=== PATIENT | female | born 2000 | race African-American/Black ===

== ENCOUNTER 2020-09-07 08:48 | Emergency (ER) | payer OTHER, SELFPAY ==
[2020-09-07 08:57] VITALS: BP 130/78; PULSE 75; RESP 16; TEMP 37.3; O2SAT 99
--- NOTE | 2020-09-07 09:17 | ED.GENADULT ---
HPI - General Adult General Chief complaint: Upper Respiratory Infection Stated complaint: possible sinus infection Time Seen by Provider: 09/07/20 09:17 Source: patient and RN notes reviewed Mode of arrival: ambulatory Limitations: no limitations History of Present Illness HPI narrative: 20-year-old female presents with complaints of upper respiratory infection, facial congestion, facial pain, and intermittent headaches (not the worst of her life) for the past 4 days. Symptoms increased over the past 24 hours with increase yellow rhinorrhea and nausea without vomiting and abdominal pain. Tolerating po intake well. No facial swelling. Denies cough. Nasal congestion and rhinorrhea. No chest pain or shortness of breath. Exacerbating factors consist of smoke. Denies fever or chills. LMP unknown due to Implanon placement. Remains active. The patient reports she have not been diagnosed with COVID-19. The patient reports she is not waiting for the results of a COVID-19 lab test. The patient reports she do not have fever, weakness, or fatigue. The patient reports she do not have a new or worsening cough. The patient reports she do not have any sore throat, loss of taste, and diarrhea. Tolerating po intake well. Denies recent traveling. Denies concerns for COVID-19 or exposures been home with limited outdoor exposure except for essential household needs, work, and return home. At this time, patient is not suspected of having COVID-19. Some parts of this dictation were generated by voice recognition software and may contain typographical and/or grammatical inaccuracies. Related Data Home Medications Medication Instructions Recorded Confirmed Implanon 1 implant IM MONTHLY 09/07/20 09/07/20 Allergies Allergy/AdvReac Type Severity Reaction Status Date / Time levofloxacin Allergy Severe Anaphylaxis Verified 09/07/20 09:01 Review of Systems Review of Systems: Narrative: CONSTITUTIONAL: Denies fever, chills, sweats. EYES: Denies visual changes, redness, discharge. ENT: Complains of rhinorrhea, congestion, sore throat. Denies otalgia. CARDIOVASCULAR: Denies chest pain, palpitations, edema. RESPIRATORY: Denies dyspnea, wheezing. Complains of dry cough/intermittent productive. GASTROINTESTINAL: Denies abdominal pain, nausea, vomiting, diarrhea. GENITOURINARY: Denies dysuria, hematuria, abnormal discharge. SKIN: Denies rash or itching. MUSCULOSKELETAL: Denies acute back pain, joint pain, or myalgia. NEUROLOGIC: Denies numbness or focal weakness. Complains of intermittent EL. PSYCHIATRIC: Denies anxiety or depression. All systems reviewed & are unremarkable except as noted in HPI and below. [facility] Past Medical History Medical History (Updated 09/09/20 @ 00:22 by ANGELICA Dubois) No significant past medical history Surgical History Surgical History (Updated 09/09/20 @ 00:22 by ANGELICA Dubois) No significant past surgical history Family History Family History (Updated 09/09/20 @ 00:23 by ANGELICA Dubois) Father Alive and well Mother Asthma Social History Social History (Updated 09/09/20 @ 00:25 by ANGELICA Dubois) Smoking status: Never smoker Tobacco type: cigarettes Second hand tobacco smoke exposure: No Alcohol intake: never Substance use: current Living arrangements: with family Occupation/Education: occupation Gender identity (if verbalized by the patient): Female Sexual Orientation (if Verbalized by the Patient): Straight or Heterosexual Comments At time of signature, agree with nurse past medical, surgical, social, and family history. There is no relevant family history pertinent to the presenting complaint. Exam Narrative: Exam Narrative: GENERAL: This is a well-nourished, well-developed patient, in no apparent distress. Talks in full sentences and ambulates with steady gait without dyspnea. HEAD: normocephalic, atraumatic. EYES: PERRL. Sclera clear/w
--- NOTE | 2020-09-07 13:21 | PC.NURSE ---
1259- Covid registration tried to contact pt. Pt gave Express care registration bad telephone number ([phone]).Contacted the [facility] pt frequents and asked if they had an updated phone number, they gave me [phone], gave to Covid registration and Express Care registration.
== END 2020-09-07 09:34 | disposition home or self-care (01) ==
PROVIDERS: Emergency Provider Nurse Practitioner Family
DX: B34.9 Viral infection, unspecified (principal); Z20.828 Contact with and (suspected) exposure to other viral communicable diseases
CPT/HCPCS: 99213; G0463

== ENCOUNTER 2020-11-14 06:15 | Emergency (ER) | payer OTHER, SELFPAY ==
[2020-11-14 06:22] VITALS: BP 113/57; PULSE 83; RESP 20; TEMP 36.2; O2SAT 100
[2020-11-14 06:25] VITALS: BP 113/57; PULSE 74; PULSE 78; RESP 15; O2SAT 100
--- NOTE | 2020-11-14 06:46 | ED.GENADULT ---
HPI - General Adult General Chief complaint: Unspecified Stated complaint: Decreased taste, left ear pain Time Seen by Provider: 11/14/20 06:46 Source: RN notes reviewed History of Present Illness HPI narrative: Patient presents emergency department from work for viral symptoms. Patient states that this morning she cannot taste her toothpaste or any salt water she also states she lost her sense of smell she notes mild rhinorrhea as well as left ear pain that all started this morning she denies any fevers or chills chest pain shortness of breath cough abdominal pain or any other symptoms she went to work today and was recommended come to the ED for rule out for Covid Related Data Home Medications Medication Instructions Recorded Confirmed Implanon 1 implant IM MONTHLY 09/07/20 09/07/20 Allergies Allergy/AdvReac Type Severity Reaction Status Date / Time levofloxacin Allergy Severe Anaphylaxis Verified 11/14/20 06:24 Review of Systems Review of Systems: Narrative: Gen.: Denies fevers or chills Eyes: Denies eye pain or visual change ENT: See HPI Respiratory: Denies shortness of breath or cough CV: Denies chest pain or palpitations GI: Denies abdominal pain nausea, emesis or diarrhea denies chance of Musculoskeletal: Denies back pain or muscle pain Neuro: Denies numbness, tingling, weakness or focal weakness Skin: Denies rash Except as documented, all other systems reviewed and negative [facility] Past Medical History Medical History No significant past medical history Surgical History Surgical History (Updated 09/09/20 @ 00:22 by ANGELICA Dubois) No significant past surgical history Family History Family History (Updated 09/09/20 @ 00:23 by ANGELICA Dubois) Father Alive and well Mother Asthma Social History Social History Smoking status: Never smoker Tobacco type: cigarettes Second hand tobacco smoke exposure: No Alcohol intake: never Substance use: current Gender identity (if verbalized by the patient): Female Sexual Orientation (if Verbalized by the Patient): Straight or Heterosexual Exam Narrative: Exam Narrative: APPEARANCE: No acute distress, nontoxic, resting in bed EYES: EOMI HEENT: Normocephalic, atraumatic, right TM normal appearance left TM with cerumen impaction nares patent RESPIRATORY: No respiratory distress Clear to auscultation bilaterally with no rhonchi wheezing or rales. CARDIOVASCULAR: Regular rate and rhythm without murmurs rubs or gallops. ABDOMINAL: Soft, nontender, nondistended, no rebound or guarding MUSCULOSKELETAl: Moves all extremities. No clubbing, cyanosis or edema. NEURO: Awake and alert. Following commands, speech normal, no focal deficits SKIN:: Warm, dry. No rashes lesions or abrasions PSYCHIATRIC: Normal affect/mood, Course Course Emergency Course: Discussed with patient results of workup and diagnosis. Discussed need for follow-up with primary care, proper use of medication, and reasons to return to the emergency department. Patient understands and agrees to current treatment plan Vital Signs Vital signs: Vital Signs Temperature 97.1 F L 11/14/20 06:22 Pulse Rate 83 11/14/20 06:22 Respiratory Rate 20 11/14/20 06:22 Blood Pressure 113/57 L 11/14/20 06:22 Pulse Oximetry 100 11/14/20 06:22 Temperature 97.1 F L 11/14/20 06:22 Pulse Rate 78 11/14/20 06:25 Respiratory Rate 15 11/14/20 06:25 Blood Pressure 113/57 L 11/14/20 06:25 Pulse Oximetry 100 11/14/20 06:25 Procedures Ear Wax Removal Left Ear: Results: Re-examined: cerumen removed completely TM Examination: TM(s) intact, normal appearance Ear Canal Exam: atraumatic Patient Tolerated Procedure: well Complications: no problems Technique: ear canal curetted Medical Decision Making Vital
[2020-11-14 07:10] VITALS: BP 128/74; PULSE 76; RESP 18; O2SAT 99
[2020-11-14 22:25] LABS: SARS-CoV-2 RNA PCR Negative
== END 2020-11-14 07:11 | disposition home or self-care (01) ==
PROVIDERS: Emergency Provider Emergency Medicine
DX: R43.8 Other disturbances of smell and taste (principal); H61.22 Impacted cerumen, left ear; Z20.828 Contact with and (suspected) exposure to other viral communicable diseases
CPT/HCPCS: 87635; 99283; C9803; U0003

== ENCOUNTER 2021-06-02 05:12 | Emergency (ER) | payer OTHER, SELFPAY ==
--- NOTE | ~2021-06-02 | CT_ITS ---
EXAMINATION: CT brain wo con DATE: 06/02/2021 06:07 INDICATION: Headache TECHNIQUE: Computed tomography (CT) of the head was performed without intravenous contrast. The mA wa s adjusted according to patient size. Iterative reconstruction technique was employed. Exam dose: 60 5.33 mGy-cm total exam DLP. COMPARISON: None FINDINGS: No intracranial mass lesion or hemorrhage or cerebrovascular accident. No midline shift or mass effect. Normal ventricular size. Normal khan-white matter differentiation. No subdural or epidural hematoma. No fracture or bone destruction of the cranial vault. The mastoid air cells and included paranasal sinuses are unremarkable. IMPRESSION: Normal examination Reviewed, dictated and finalized at [facility] Reviewed, dictated and finalized at [facility]. IMPRESSION: Normal examination
[2021-06-02 05:14] VITALS: BP 125/82; PULSE 91; RESP 19; TEMP 36.9; O2SAT 100
[2021-06-02 05:21] VITALS: BP 120/79; PULSE 93; RESP 18; O2SAT 100
--- NOTE | 2021-06-02 05:26 | ED.HA ---
HPI - Headache General Chief Complaint: Headache Stated Complaint: h/a, facial pressure, sore throat Time Seen by Provider: 06/02/21 05:25 Source: patient Mode of arrival: ambulatory Limitations: no limitations History of Present Illness HPI Narrative: Patient is a 21-year-old female who presents for evaluation of headache pain, sore throat and rhinorrhea. Patient states she has been feeling unwell for the past 7 days. She states that her boyfriend's mother was diagnosed with Covid 3 weeks ago, and patient started developing symptoms. Patient reports rhinorrhea, headache, sore throat. She denies any neck pain. She denies fever. Patient denies history of migraine headache. She denies lightheadedness or dizziness. No nausea or vomiting. Patient states she has taken Tylenol without much improvement in her headache pain. She reports marijuana use without other drug use. She denies alcohol use. She reports some mild photophobia. Related Data Home Medications Medication Instructions Recorded Confirmed Implanon 1 implant IM MONTHLY 09/07/20 09/07/20 Allergies Allergy/AdvReac Type Severity Reaction Status Date / Time levofloxacin Allergy Severe Anaphylaxis Verified 06/02/21 05:26 Review of Systems Review of Systems: Narrative: CONSTITUTIONAL: Denies fever, chills, or sweats. EYES: Denies visual changes, redness, or discharge. ENT: Reports rhinorrhea, congestion, sore throat, otalgia CARDIOVASCULAR: Denies chest pain, palpitations, or edema. RESPIRATORY: Denies cough or dyspnea. GASTROINTESTINAL: Denies abdominal pain, nausea, vomiting, or diarrhea. GENITOURINARY: Denies dysuria or hematuria. SKIN: Denies rash or itching. MUSCULOSKELETAL: Denies back pain, joint pain, or myalgia. NEUROLOGIC: Reports headache without numbness, or weakness. [facility] Past Medical History Medical History No significant past medical history Surgical History Surgical History No significant past surgical history Family History Family History Father Alive and well Mother Asthma Social History Social History (Updated 06/02/21 @ 05:35 by Lisette Menon MD) Smoking status: Never smoker Tobacco type: cigarettes Second hand tobacco smoke exposure: No Alcohol intake: never Substance use: current Substance use type: marijuana Gender identity (if verbalized by the patient): Female Exam Narrative: Exam Narrative: GENERAL: Awake, alert, conversant HEAD: Normocephalic, atraumatic. EYES: PERRLA and EOMI. ENT: Nares clear, no epistaxis. Patient with rhinorrhea. Mucous membranes moist. Tympanic membranes clear bilaterally without effusion, no perforation. No evidence of otitis media. Uvula is midline. No significant erythema of the oropharynx. No trismus. NECK: Supple. Nonrigid. Full flexion and extension without limitation. No meningitic signs. No anterior or posterior cervical lymphadenopathy. No pre or postauricular lymphadenopathy. CHEST: No respiratory distress, breathing even and non labored HEART: Regular rate, sinus rhythm ABDOMEN:Non distended, non tender EXTREMITIES: Normal range of motion. No edema. SKIN: Warm, dry, no rash. NEURO:No focal deficits. Alert and oriented x3. Finger to nose intact bilaterally. EOMs intact without nystagmus. No facial droop/asymmetry noted bilaterally. Grimace intact. Intact sensation in face. Hearing intact bilaterally. Shoulder shrug intact. Strength 5/5 bilateral upper extremities. Strength 5/5 bilateral lower extremities. Reflexes 2+ patellar. Heel to gonzales intact bilaterally. Ambulatory with a narrow based, steady gait, no ataxia. Course Vital Signs Vital signs: Vital Signs Temperature 36.9 C 06/02/21 05:14 Pulse Rate 91 06/02/21 05:14 Respiratory Rate 19 06/02/21 05:14 Blood Pressure 125/82 05/19
[2021-06-02] MEDS: SODIUM CHLORIDE 0.9% IV 1,000 ML 999 ML IV CONT (05:47)
[2021-06-02 05:48] LABS: Basophils Percent Auto 0.5 % (0.2-1.2); Eosinophils Percent Auto 0.9 % (0-4.4); Hematocrit 39.2 % (37.0-47.0); Hemoglobin 12.5 g/dL (12.0-15.0); Immature Granulocyte Absolute 0.02 K/mm3 (0.00-0.031); Immature Granulocyte Percent A 0.5 % (0-0.5); Lymphocytes Absolute Auto 0.76 K/mm3 (0.9-3.2); Lymphocytes Percent Auto 17.9 % (18.3-44.2); Mean Corpuscular HGB Conc 31.9 g/dl (32-36); Mean Corpuscular Hemoglobin 26.9 pg (26-34); Mean Corpuscular Volume 84.3 fl (80-100); Mean Platelet Volume 10.7 fl (7.4-10.4); Monocytes Percent Auto 22.4 % (2.6-8.5); Neutrophils Absolute Auto 2.5 K/mm3 (1.3-6.7); Neutrophils Percent Auto 57.8 % (45.5-73.1); Platelet Count Result 249 k/mm3 (150-375); Red Blood Count 4.65 M/mm3 (4.2-5.4); Red Cell Distribution Width 13.2 % (11.5-14.5); White Blood Count 4.3 K/mm3 (4.5-10.0)
[2021-06-02] MEDS: diphenhydrAMINE HCl INJ 50 MG/ML VIAL 25 MG IV PUSH (05:48)
[2021-06-02 05:58] LABS: Alanine Aminotransferase 12 U/L (4-35); Albumin Level 4.5 g/dL (3.5-5.1); Alkaline Phosphatase 61 U/L (38-126); Anion Gap 10 mmol/L (8-16); Aspartate Amino Transferase 20 U/L (14-36); Bilirubin,Total 0.4 mg/dL (0.2-1.3); Blood Urea Nitrogen 12 mg/dL (7-17); Calcium 9.4 mg/dL (8.4-10.2); Carbon Dioxide 22 mmol/L (22-30); Chloride 104 mmol/L (98-107); Estimated CRCL calculation 115 ml/min; Estimated Glomerular Filt Rate > 60; Glucose 97 mg/dL (65-105); Potassium 3.8 mmol/L (3.4-5.0); Sodium 136 mmol/L (137-145)
[2021-06-02] MEDS: MAGNESIUM SULF 2 GM/WATER 50ML 2 GM/50 ML BAG IVPB (06:13)
[2021-06-02 07:20] VITALS: BP 128/76; PULSE 99; RESP 16; O2SAT 98
[2021-06-02 16:29] LABS: SARS-CoV-2 RNA PCR Positive
== END 2021-06-02 07:23 | disposition home or self-care (01) ==
PROVIDERS: Emergency Provider Emergency Medicine
DX: U07.1 COVID-19 (principal); G44.209 Tension-type headache, unspecified, not intractable
CPT/HCPCS: 36415; 70450; 80053; 85025; 87081; 87880; 96365; 96367; 96375; 99284; C9803; J0131; J1100; J1200; J3475; J7030; U0003; U0005

== ENCOUNTER 2021-06-05 20:04 | Emergency (ER) | payer OTHER, SELFPAY ==
[2021-06-05 20:19] VITALS: BP 138/78; PULSE 98; RESP 16; TEMP 37.2; O2SAT 100
--- NOTE | 2021-06-05 21:03 | ED.GENADULT ---
HPI - General Adult General Chief complaint: Headache Stated complaint: covid +, headache Time Seen by Provider: 06/05/21 20:22 Source: patient History of Present Illness HPI narrative: Patient is a 21 y/o female complaining of midline frontal headache for 1 week. She describes her headache as throbbing. She states that her headache radiates to the back of her head sometimes. She rates her pain as 7/10. Medication seems help with her headache somewhat. She has some vomiting and cough. She has no fever. She tested positive for COVID 3 days ago. Related Data Home Medications Medication Instructions Recorded Confirmed Implanon 1 implant IM MONTHLY 09/07/20 09/07/20 Allergies Allergy/AdvReac Type Severity Reaction Status Date / Time levofloxacin Allergy Severe Anaphylaxis Verified 06/02/21 05:26 Review of Systems Constitutional: Constitutional: Reports chills, Denies fever(s), Reports headache(s) and Denies weakness Eyes: Eyes: Denies blurry vision ENT: Reports headache(s) and Denies neck pain Cardiovascular: Cardiovascular: Denies chest pain and Denies dyspnea Respiratory: Respiratory: Denies cough and Denies dyspnea Gastrointestinal: Gastrointestinal: Denies abdominal pain, Denies diarrhea, Denies nausea and Denies vomiting Genitourinary: Genitourinary: Denies hematuria and Denies dysuria Musculoskeletal: Musculoskeletal: Denies back pain and Denies neck pain Neurologic: Reports headache(s) and Denies weakness PMFSH Past Medical History Medical History No significant past medical history Surgical History Surgical History No significant past surgical history Family History Family History Father Alive and well Mother Asthma Social History Social History Smoking status: Never smoker Tobacco type: cigarettes Second hand tobacco smoke exposure: No Alcohol intake: never Substance use: current Substance use type: marijuana Gender identity (if verbalized by the patient): Female Exam Const: General: no acute distress and well developed Orientation/consciousness: oriented to person, oriented to place, oriented to time and patient oriented x3 HENMT: Head: normocephalic Ears: external ears normal General nose exam: Normal external nose present Eyes: General: appearance normal, both eyes and all related structures Conjunctivae: conjunctivae normal Neck: Neck: normal visual inspection and full ROM Chest: Chest palpation & inspection: normal inspection of the chest and no tenderness Resp: Effort & Inspection: normal respiratory effort Auscultation: clear to auscultation bilaterally Cardio: Rate: regular rate Rhythm: regular rhythm GI: GI Palp: No abdominal tenderness and Yes Soft to palpation Skin: General skin exam: normal color and turgor normal Neuro: General: oriented to person, oriented to place, oriented to time and patient oriented x3 Cognition (Neuro): normal cognition Extrem: General: normal to inspection, full ROM and no pedal edema Psych: Appearance: grossly normal Mental Status: mental status grossly normal Affect: normal affect Course Vital Signs Vital signs: Vital Signs Temperature 37.2 C 06/05/21 20:19 Pulse Rate 98 06/05/21 20:19 Respiratory Rate 16 06/05/21 20:19 Blood Pressure 138/78 06/05/21 20:19 Pulse Oximetry 100 06/05/21 20:19 Temperature 37.2 C 06/05/21 20:19 Pulse Rate 73 06/06/21 00:07 Respiratory Rate 20 06/06/21 00:07 Blood Pressure 139/75 06/06/21 00:07 Pulse Oximetry 98 06/06/21 00:07 Medical Decision Making Vital Signs Vital Signs: Vital Signs Temperature 37.2 C 06/05/21 20:19 Pulse Rate 98 06/05/21 20:19 Respiratory Rate 16 06/05/21 20:19 Blood Pressure 138/78 06/05/21 20
[2021-06-05 21:24] LABS: Basophils Percent Auto 0.3 % (0.2-1.2); Eosinophils Percent Auto 0.6 % (0-4.4); Hematocrit 38.4 % (37.0-47.0); Hemoglobin 12.6 g/dL (12.0-15.0); Immature Granulocyte Absolute 0.01 K/mm3 (0.00-0.031); Immature Granulocyte Percent A 0.3 % (0-0.5); Lymphocytes Absolute Auto 2.07 K/mm3 (0.9-3.2); Lymphocytes Percent Auto 66.1 % (18.3-44.2); Mean Corpuscular HGB Conc 32.8 g/dl (32-36); Mean Corpuscular Hemoglobin 26.5 pg (26-34); Mean Corpuscular Volume 80.8 fl (80-100); Mean Platelet Volume 10.8 fl (7.4-10.4); Monocytes Absolute Auto 0.5 K/mm3 (0.1-0.6); Monocytes Percent Auto 16.6 % (2.6-8.5); Neutrophils Absolute Auto 0.5 K/mm3 (1.3-6.7); Neutrophils Percent Auto 16.1 % (45.5-73.1); Platelet Count Result 235 k/mm3 (150-375); Red Blood Count 4.75 M/mm3 (4.2-5.4); White Blood Count 3.1 K/mm3 (4.5-10.0)
[2021-06-05 21:34] LABS: Alanine Aminotransferase 16 U/L (4-35); Alkaline Phosphatase 59 U/L (38-126); Anion Gap 11 mmol/L (8-16); Aspartate Amino Transferase 29 U/L (14-36); Bilirubin,Total 0.4 mg/dL (0.2-1.3); Blood Urea Nitrogen 12 mg/dL (7-17); Calcium 8.9 mg/dL (8.4-10.2); Carbon Dioxide 21 mmol/L (22-30); Chloride 105 mmol/L (98-107); Estimated CRCL calculation 137 ml/min; Estimated Glomerular Filt Rate > 60; Glucose 90 mg/dL (65-110); Potassium 3.8 mmol/L (3.4-5.0); Sodium 137 mmol/L (137-145)
[2021-06-05 21:35] VITALS: BP 142/79; PULSE 78; RESP 18; O2SAT 99
[2021-06-05] MEDS: SODIUM CHLORIDE 0.9% IV 1,000 ML 999 ML IV CONT (21:46)
[2021-06-05] MEDS: KETOROLAC 30 MG/ML VIAL (*BKC) IV PUSH (21:47)
[2021-06-05] MEDS: METOCLOPRAMIDE HCL INJ 10 MG/2 ML VIAL IV PUSH (21:47)
[2021-06-05] MEDS: diphenhydrAMINE HCl INJ 50 MG/ML VIAL 25 MG IV PUSH (21:48)
[2021-06-05 21:49] VITALS: BP 137/76; PULSE 78; RESP 20; O2SAT 100
[2021-06-05 23:13] LABS: Add Urine Microscopic? YES; Appearance Urine Clear (Clear); Bacteria Urine Trace /hpf; Bilirubin Urine Negative (Negative); Blood Urine 1+ (Negative); Color Urine Straw (Yellow); Glucose Urine UA Negative (Negative); Ketones Urine Negative (Negative); Leukocyte Esterase Ur Negative LEU/UL (Negative); Nitrate Urine Negative (Negative); Protein Urine Negative (Negative); RBC Urine 0-2 /hpf (0-2); Specific Grav Ur 1.006 (1.001-1.035); Squamous Epithelial Cell Urine Occasional /hpf (Few); Urobilinogen Urine Negative mg/dL (<2.0); WBC Urine 0-3 /hpf
[2021-06-06 00:07] VITALS: BP 139/75; PULSE 73; RESP 20; O2SAT 98
== END 2021-06-06 00:10 | disposition home or self-care (01) ==
PROVIDERS: Emergency Provider Emergency Medicine
DX: U07.1 COVID-19 (principal); R51.9 Headache, unspecified
CPT/HCPCS: 36415; 80053; 81001; 81025; 85025; 87081; 87880; 96361; 96374; 96375; 99284; J1200; J1885; J2765; J7030

== ENCOUNTER 2022-12-30 09:50 | Emergency (ER) | payer OTHER, SELFPAY ==
[2022-12-30 10:08] VITALS: BP 122/70; PULSE 72; RESP 16; TEMP 36.5; O2SAT 100
--- NOTE | 2022-12-30 10:21 | ED.GENADULT ---
HPI - General Adult General Chief complaint: Urogenital-Female Stated complaint: uti Source: patient and RN notes reviewed History of Present Illness HPI narrative: 22-year-old female presents urgent care with complaints of burning with urination a, urine swelling like onion, some lower pelvic pain earlier this week but no longer, and right lower back pain. Patient states the symptoms have been going on for last week. Patient reports polyuria as well. Denies any flank pain, abdominal pain, vomiting, fevers, chills, or concern for STDs. Some parts of this dictation were generated by voice recognition software and may contain typographical and/or grammatical inaccuracies. Related Data Allergies Allergy/AdvReac Type Severity Reaction Status Date / Time levofloxacin Allergy Severe Anaphylaxis Verified 12/30/22 10:04 Review of Systems Review of Systems: CONSTITUTIONAL: Denies fever, chills, or sweats. EYES: Denies visual changes, redness, or discharge. ENT: Denies otalgia and sore throat CARDIOVASCULAR: Denies chest pain, palpitations, or edema. RESPIRATORY: Denies cough or dyspnea. GASTROINTESTINAL: Denies abdominal pain, nausea, vomiting, or diarrhea. GENITOURINARY: Reports dysuria. SKIN: Denies rash or itching. MUSCULOSKELETAL: reports right lower back pain NEUROLOGIC: Denies headache, numbness, or weakness. COUNTS INCLUDE 234 BEDS AT THE [facility] Past Medical History Medical History No significant past medical history Surgical History Surgical History No significant past surgical history Family History Family History Father Alive and well Mother Asthma Social History Social History Smoking status: Never smoker Tobacco type: cigarettes Second hand tobacco smoke exposure: No Alcohol intake: never Substance use: current Substance use type: marijuana Living arrangements: with family Occupation/Education: occupation Gender identity (if verbalized by the patient): Female Sexual Orientation (if Verbalized by the Patient): Straight or Heterosexual Comments At the time of my signature, I reviewed and agree with the nursing past medical, surgical, social, and family history. There is no relevant family history pertinent to the patient complaint. Exam Narrative: GENERAL: This is a well-nourished, well-developed patient, in no apparent distress. HEAD: normocephalic, atraumatic. EYES: PERRL. Sclera clear/white. Vision is grossly intact. EARS: External ears normal, auditory canals clear and without drainage, TMs normal without perforation. Hearing grossly intact. NOSE: External nose normal with no obvious nasal discharge, nares without redness, no rhinorrhea. THROAT: Mucous membranes moist, posterior pharynx clear. NECK: Neck supple, non-tender without lymphadenopathy, masses or thyromegaly. CARDIOVASCULAR: Regular rate and rhythm without murmurs, gallops, or rubs. RESPIRATORY: Clear to auscultation. Breath sounds equal bilaterally. No wheezes, rales, or rhonchi. GASTROINTESTINAL: Abdomen soft, non-tender, nondistended. Bowel sounds are active. No hepato-splenomegaly, or palpable masses. No guarding. SKIN: warm, intact with no suspicious lesions or rash, good texture and turgor. NEURO: awake, alert, and oriented to person, place and time. There were no obvious focal neurologic abnormalities. BACK: Nontender without deformity or crepitance. No flank tenderness. Course Course Level of Care: Express Care Visit Vital Signs Vital signs: Vital Signs Temperature 97.7 F 12/30/22 10:08 Pulse Rate 72 12/30/22 10:08 Respiratory Rate 16 12/30/22 10:08 Blood Pressure 122/70 12/30/22 10:08 Pulse Oximetry 100 12/30/22 10:08 Oxygen Delivery Room Air 12/30/22 10:08 Temperature 97.7 F 12/30/22 10:08 Puls
--- NOTE | 2022-12-30 11:06 | PC.NURSE ---
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
== END 2022-12-30 10:48 | disposition home or self-care (01) ==
PROVIDERS: Emergency Provider Nurse Practitioner Family
DX: R30.0 Dysuria (principal); F12.90 Cannabis use, unspecified, uncomplicated
CPT/HCPCS: 81003; 99213; G0463

== ENCOUNTER 2024-01-20 09:14 | Emergency (ER) | payer OTHER, SELFPAY ==
[2024-01-20 09:18] VITALS: BP 134/83; PULSE 95; RESP 20; TEMP 36.6
--- NOTE | 2024-01-20 09:24 | ED.GENADULT ---
HPI - General Adult General Chief complaint: Nausea/Vomiting/Diarrhea Stated complaint: Vomiting Source: patient, RN notes reviewed and old records reviewed Mode of arrival: ambulatory Limitations: no limitations History of Present Illness HPI narrative: 23-year-old female presents to [facility] with complaints nausea, vomiting that started about 430 this a.m.. Patient states woke from her sleep throwing up. Patient denies diarrhea but states it is does have rectal pressure. Patient states last normal BM was Sunday. Patient denies cough, congestion, fever, myalgia. Patient states ate subway about 530 last night. Related Data Allergies Allergy/AdvReac Type Severity Reaction Status Date / Time levofloxacin Allergy Severe Anaphylaxis Verified 01/20/24 09:25 Review of Systems Constitutional: Constitutional: Reports no additional constitutional complaints, Denies body ache(s), Denies chills, Denies fatigue, Denies fever(s) and Denies headache(s) Eyes: Eyes: Reports no additional eye complaints and Denies blurry vision ENT: Reports system reviewed and no additional complaints, except as documented, Denies vertigo, Denies dizziness, Denies ear discharge, Denies otalgia, Denies facial pain, Denies headache(s), Denies nasal congestion, Denies nasal discharge, Denies sinus pain, Denies sinus pressure and Denies sore throat Cardiovascular: Cardiovascular: Reports no additional cardiovascular complaints, Denies chest pain, Denies chest pain at rest, Denies rapid heart rate and Denies dyspnea Respiratory: Respiratory: Reports no additional respiratory complaints, Denies chest congestion, Denies cough, Denies pain on inspiration, Denies pain with cough and Denies dyspnea Gastrointestinal: Gastrointestinal: Denies abdominal pain, Denies diarrhea, Reports nausea and Reports vomiting Integumentary/Breasts: Skin/Breast: Denies rash Neurologic: Reports system reviewed and no additional complaints, except as documented, Denies vertigo, Denies dizziness and Denies headache(s) Endocrine: Endocrine: Denies fatigue PMFSH Past Medical History Medical History No significant past medical history Surgical History Surgical History No significant past surgical history Family History Family History Father Alive and well Mother Asthma Social History Social History Smoking status: Never smoker Tobacco type: cigarettes Second hand tobacco smoke exposure: No Alcohol intake: never Substance use: current Substance use type: marijuana Living arrangements: with family Occupation/Education: occupation Gender identity (if verbalized by the patient): Female Sexual Orientation (if Verbalized by the Patient): Straight or Heterosexual Comments At the time of my signature, I reviewed and agree with the nursing past medical, surgical, social, and family history. There is no relevant family history pertinent to the patient complaint. Exam Const: General: cooperative, no acute distress, ill appearing acutely and well nourished Nutritional Appearance: well nourished Orientation/consciousness: patient oriented x3 Limitations: no limitations HENMT: Head: normal to inspection and normocephalic Ears: external ears normal, TM's normal bilaterally, EAC's normal and mastoids normal Face/Nose/Sinus: normal facial exam Face and sinus: normal facial exam Mouth: Yes Normal oral and palatal mucosa present, Yes oropharynx normal and Yes moist mucous membranes Throat: posterior oropharynx normal, tonsils normal, uvula midline and no uvular edema Eyes: General: appearance normal, both eyes and all related structures Sclera: sclerae normal Pupils: Equal, round and reactive pupils present Resp: Effort & Inspection: sreekanth
[2024-01-20] MEDS: ONDANSETRON HCL ODT 4 MG TABLET PO (09:31)
== END 2024-01-20 09:59 | disposition home or self-care (01) ==
PROVIDERS: Emergency Provider Registered Nurse
DX: K52.9 Noninfective gastroenteritis and colitis, unspecified (principal)
CPT/HCPCS: 87804; 99213; A9270; G0463

== ENCOUNTER 2025-11-07 08:51 | Emergency (ER) | payer OTHER, SELFPAY ==
[2025-11-07 09:04] VITALS: BP 146/92; PULSE 91; RESP 20; TEMP 36.6; O2SAT 99
--- NOTE | 2025-11-07 09:11 | ED.URI ---
HPI - URI/Sore Throat General Chief Complaint: Upper Respiratory Infection Stated Complaint: Sinus/Cough patient presents to the [facility] with complaints of flu symptoms that began about 3 days ago. Patient noted fever, chills, body aches, cough, headache, sore throat, and significant fatigue. Patient noted today feeling significantly worse. Patient works from home and noted she has been ending her work day early due to symptoms And feeling bad. Patient using DayQuil and TheraFlu with some relief of symptoms. Denies shortness of breath, difficulty swallowing, nausea, vomiting, diarrhea, or dizziness. Related Data Allergies Allergy/AdvReac Type Severity Reaction Status Date / Time levofloxacin Allergy Severe Anaphylaxis Verified 11/07/25 09:12 Review of Systems Constitutional: Constitutional: Reports as per HPI, Reports chills, Reports fatigue, Reports fever(s) and Denies weakness Eyes: Eyes: Reports no additional eye complaints ENT: Reports as per HPI, Denies vertigo, Denies dizziness, Reports nasal congestion and Reports sore throat Cardiovascular: Cardiovascular: Reports no additional cardiovascular complaints Respiratory: Respiratory: Reports as per HPI, Reports chest congestion, Reports cough, Denies dyspnea and Denies wheezing Gastrointestinal: Gastrointestinal: Reports as per HPI, Denies abdominal pain, Denies diarrhea, Denies nausea and Denies vomiting Genitourinary: Genitourinary: Reports no additional female genitourinary complaints Musculoskeletal: Musculoskeletal: Reports as per HPI, Denies back pain and Denies myalgias Integumentary/Breasts: Skin/Breast: Reports as per HPI, Denies erythema, Denies rash and Denies skin ulcer Neurologic: Reports as per HPI, Denies vertigo, Denies dizziness, Reports headache(s) and Denies weakness Psychiatric: Psychiatric: Reports no additional psychiatric complaints Endocrine: Endocrine: Reports no additional endocrine complaints Hematologic/Lymphatic: Hematologic/Lymphatic: Reports no additional hematologic/lymphatic complaints Allergic/Immunologic: Allergic/Immunologic: Reports no additional allergic/immunologic complaints [facility] Past Medical History Medical History No significant past medical history Surgical History Surgical History No significant past surgical history Family History Family History Father Alive and well Mother Asthma Social History Social History Smoking status: Never smoker Tobacco type: cigarettes Second hand tobacco smoke exposure: No Alcohol intake: never Substance use: current Substance use type: marijuana Living arrangements: with family Occupation/Education: occupation Gender identity (if verbalized by the patient): Female Sexual Orientation (if Verbalized by the Patient): Straight or Heterosexual Exam Const: General: no acute distress, alert and ill appearing Nutritional Appearance: well nourished Orientation/consciousness: patient oriented x3 Limitations: no limitations HENMT: Head: normal to inspection Ears: external ears normal and TM's normal bilaterally Face/Nose/Sinus: Normal external nose present and Normal nares present Face and sinus: normal facial exam and sinuses nontender Mouth: Yes Normal oral and palatal mucosa present, Yes lip normal and Yes moist mucous membranes Throat: posterior oropharynx abnormal ( Moderate erythema with edema no exudate) Neck: Neck: normal visual inspection and no lymphadenopathy Resp: Effort & Inspection: normal respiratory effort Auscultation: clear to auscultation bilaterally Cardio: Rate: regular rate Rhythm: regular rhythm Skin: General skin exam: normal color Rashes: no rashes Wounds: no wounds Neuro: General: patient oriented x3 Speech: normal speech Gait exam (Neuro): Normal gait present Psych: Mental Status: mental status grossly normal Affect: normal affect Attitude: cooperative Course Course Level of Care: Express Care Visit Vital Signs Vital signs: Vital Signs Temperature 97.9 F 11/07/25 09:04 Pulse Rate 91 11/07/25 09:04 Respiratory Rate 20 11/07/25 09:04 Blood Pressure 146/92 H 11/07/25 09:04 Pulse Oximetry 99 11/07/25 09:04 Oxygen Delivery Room Air 11/07/25 09:04 Temperature 97.9 F 11/07/25 09:04 Pulse Rate 91 11/07/25 09:04 Respiratory Rate 20 11/07/25 09:04 Blood Pressure 146/92 H 11/07/25 09:04 Pulse Oximetry 99 11/07/25 09:04 Oxygen Delivery Room Air 11/07/25 09:04 MDM MDM Narrative Medical decision making narrative: flu A positive. COVID negative. The patient was evaluated by myself in the express care. History is obtained from patient who is an independent historian and physical exam was performed. Available medical records were reviewed at this time. Exam findings show no acute concerns or changes; patient is non-toxic appearing and is in no distress. Patient is appropriate for outpatient treatment and follow-up. I have evaluated and discussed social determinants of health with the patient that could potentially impact subsequent diagnosis and treatment plans. Differential diagnosis and treatment plan were discussed with the patient. Patient agrees with discussion and after shared medical decision making agrees with plan of care. All questions were answered to the patient's satisfaction. Differential Diagnosis Differential Diagnosis: influenza, COVID, strep, sinusitis, upper respiratory infection, pharyngitis Medical Records I have reviewed the following patient records and this information was taken into consideration when formulating the assessment and plan.: previous labs, previous ER visits, previous hospitalizations and previous clinic visits Lab Data MDM Lab Attestation statement: I personally reviewed the patient's lab results. Discharge Plan Discharge Clinical Impression: Influenza A Patient Disposition: Home Condition: Stable Instructions: Antibiotic Form, Influenza (ED), Viral Syndrome (ED) Additional Instructions: you are positive for influenza A. your strep testing was negative. Viral illness may last between 7-12days; antibiotic is NOT recommended at this time. Recommend antihistamine such as Benadryl at night time and Claritin/Zyrtec/Rosalie during the day. Also using steroid nasal spray like Flonase can help with symptoms and congestion. Using sudafed for significant congestion will also give some relief. Cough syrup may cause drowsiness; avoid driving or take it at night time. Use inhaler as needed for cough, wheezing, shortness of breath or chest tightness. Also, recommend symptomatic treatment includes: rest, fluids, increase humidity of the air at home. Recommend Acetaminophen or nonsteroidal anti-inflammatory agents(NSAIDs) as directed in the bottle to reduce fever and/pain/headache. Avoid smoking/second-hand smoke. Limit visits to areas with large crowds. Frequent hand washing or hand linen controller is one of the best ways to prevent spread of infection. Please schedule a followup visit with your personal physician for further evaluation and treatment within 3-5days. Including recheck and discussion of your blood pressure. If your symptoms persist, change or worsen significantly before you can contact your personal physician then please, without delay, go to the emergency department for further evaluation. Patient Language: Persian Prescriptions: New benzonatate 200 mg capsule 200 mg PO TID PRN (Reason: cough) Qty: 30 0RF methylprednisolone [Medrol (Roberto)] 4 mg tablets,dose pack See Rx Instructions .ROUTE .COMPLEX Qty: 21 0RF Rx Instructions: for 6 days Follow-up/Referrals: PHYSICIAN NOT ON STAFF,NONSTAFF [Primary Care Provider] Time of Disposition: 09:34
[2025-11-07 09:20] LABS: EDCOVIDSCREEN Negative (Negative); EDINFLUASCREEN Positive (Negative); EDINFLUBSCREEN Negative (Negative)
[2025-11-07 09:41] LABS: EDSTREPNEGPOS1 Negative (Negative)
== END 2025-11-07 09:44 | disposition home or self-care (01) ==
PROVIDERS: Emergency Provider Nurse Practitioner Family
DX: J10.1 Influenza due to other identified influenza virus with other respiratory manifestations (principal); Z20.822 Contact with and (suspected) exposure to COVID-19
CPT/HCPCS: 87081; 87426; 87804; 87880; 99213; G0463